=== PATIENT | female | born 2000 | race Caucasian/White ===

== ENCOUNTER 2024-08-05 21:46 | Emergency (ER) | payer BC ==
[~2024-08-05] VITALS: Ht 154.9 cm; Wt 48.5 kg
[2024-08-05 22:10] LABS: APPEARANCE,URINE CLEAR (CLEAR); BILIRUBIN,URINE NEGATIVE (NEGATIVE); COLOR,URINE LIGHT-YELLOW (YELLOW); GLUCOSE, URINE (UA) NEGATIVE (NEGATIVE); KETONES,URINE NEGATIVE (NEGATIVE); LEUKOCYTE ESTERASE ,URINE NEGATIVE Leu/uL (NEGATIVE); NITRATE,URINE NEGATIVE (NEGATIVE); OCCULT BLOOD,URINE NEGATIVE (NEGATIVE); PH,URINE 5.5 (5.0-8.0); PROTEIN,URINE NEGATIVE (NEGATIVE); UROBILINOGEN,URINE 0.2 mg/dL (0.2-1.0)
[2024-08-05 22:11] LABS: ADD UA MICROSCOPIC YES
[2024-08-05 22:12] LABS: BACTERIA,URINE RARE /HPF (None Seen); MUCUS,URINE RARE LPF (None Seen); RBC,URINE 0-1 /HPF (0-1); SQUAMOUS EPITHELIAL CELL,UR RARE /HPF (0-2); WBC,URINE 0-1 /HPF (0-1)
--- NOTE | 2024-08-05 22:30 | ERN ---
ED Note History of Present Illness Stated Complaint: C/O BACK PAIN X 4 DAYS Chief Complaint: Back Pain-No Injury Time Seen by MD: 22:01 Dictation: This is a 23-year-old female who presented to the emergency room with her partner complaining of severe back pain for the past 3-4 days. She stated that she had a spinal fusion in 2017 for scoliosis and she always has some back pain however for the past 3-4 days it has been really unbearable. No new falls or injury. No fever chills or rigors. No burning micturition no bladder or bowel incontinence no weakness in her legs or gait problems. She indicated that she might have stressed the back with some activities. Allergies: Coded Allergies: No Known Allergies (Unverified Allergy, Unknown, 08/05/24) Past Medical History Past Medical History: Anxiety, Depression, Hypertension, Other Additional Past Medical Hx: HX OF PTSD Surgical History: Other Surgical History Other: SPINAL FUSION (2016) Family History: Negative LMP: Jul 02, 2024 RN Note Reviewed/Agreed w/PFSH: Yes Review of System Dictation Constitutional: Negative for fever,chills, and weight loss Eyes: Negative for injury, pain,redness, and discharge ENT: Negative for injury,pain or swelling Cardiovascular: Negative for chest pain, palpitations, and edema Respiratory: Negative for shortness of breath, cough, and wheezing, Abdomen/GI: Negative for abdominal pain, nausea, vomiting, diarrhea, and constipation Back: Positive for back pain . Back fusion for scoliosis : Negative for injury, bleeding and discharge MS/Extremity: Negative for injury and deformity Skin: Negative for rash, and discoloration Neuro: Negative for headache, weakness, numbness, tingling, and seizure Psych: Negative for suicide ideation, homicidal ideation, and hallucinations Initial Vital Sign VS Vital Signs Date Time Temp Pulse Resp B/P (MAP) Pulse Ox O2 Delivery O2 Flow Rate FiO2 08/05/24 21:51 98.8 96 20 147/104 100 Room Air 08/05/24 22:28 0 21 Physical Exam Dictation General: awake, alert, NAD Head/Face: Normocephalic, atraumatic Eyes: PERRL, EOMI, vision at baseline ENT: oral cavity clear, TMs clear, no signs of infection Neck: Trachea midline, supple, no nuchal rigidity Cardiovascular: RRR, normal S1/S2, No MRGs, no JVD Respiratory: CTAB, no respiratory distress, No rales or wheezes Abdomen: Soft, non-tender, non-distended, normal bowel sounds, no guarding or rebound. Skin: Warm, dry, normal turgor, no rash MS/Extremity: Pulses equal, no cyanosis, neurovascular intact, FROM No tenderness in the spine. Neuro: COAx4, GCS 15, strength 5/5, CN 2-12 intact, normal cerebellar exam, normal gait, Psych: Normal behavior, mood, and affect normal Extremities-trace edema without any palpable cords, Homans sign is negative Results (Laboratory/Radiology) Laboratory/Radiology Laboratory Tests Test 08/05/24 21:56 Urine Color LIGHT-YELLOW (YELLOW) Urine Appearance CLEAR (CLEAR) Urine pH 5.5 (5.0-8.0) Urine Specific [place] 1.020 (1.001-1.031) Urine Protein NEGATIVE mg/dL (NEGATIVE) Urine Glucose (UA) NEGATIVE mg/dL (NEGATIVE) Urine Ketones NEGATIVE mg/dL (NEGATIVE) Urine Occult Blood NEGATIVE (NEGATIVE) Urine Nitrate NEGATIVE (NEGATIVE) Urine Bilirubin NEGATIVE mg/dL (NEGATIVE) Urine Urobilinogen 0.2 mg/dL (0.2-1.0) Urine Leukocyte Esterase NEGATIVE Krista/uL Urine RBC 0-1 /HPF (0-1) Urine WBC 0-1 /HPF (0-1) Urine Squamous Epithelial Cells RARE /HPF (0-2) Urine Bacteria RARE /HPF (None Seen) Urine HCG, Qualitative NEGATIVE (NEGATIVE) Urine Opiates Screen NEGATIVE (NEGATIVE) Urine Barbiturates Screen NEGATIVE (NEGATIVE) Urine Phencyclidine Screen NEGATIVE (NEGATIVE) Urine Amphetamines Screen NEGATIVE (NEGATIVE) Urine Benzodiazepines Screen NEGATIVE (NEGATIVE) Urine Cocaine Screen NEGATIVE (NEGATIVE) Urine Marijuana (THC) Screen POSITIVE (NEGATIVE) H Labs Reviewed?: Yes CT Scan Comment: REASON: h/o spinal fusion. severe back pain for 4 days ORDERING PHYSICIAN: MARILOU POTTER MD PROCEDURE: L SPIN WO - CT LUMBAR SPINE W/O CONTRAST CT LUMBAR SPINE W/O CONTRAST HISTORY: Back pain COMPARISON: None TECHNIQUE: Multiple sequential axial images of the lumbar spine were obtained including post processing sagittal and coronal reconstruction images. Patient was not given contrast through intravenous route. FINDINGS: There is levoscoliosis of lumbar spine. Orthopedic fixation plates and screws are seen traversing the T12-L3 levels. Laminectomy changes are seen at these level. Evaluation is limited due to artifacts caused by the fixation periods. This is a suboptimal study for evaluation of T12-L3. There is no loss of vertebral height. Evaluation for disc and cord pathology is limited with CT study. No evidence of fracture or dislocation is seen. IMPRESSION: 1. Limited study due to extensive artifacts from orthopedic fixation plates and screws at T12-L3. No loss of vertebral height is seen. CT was performed with one or more following dose reduction techniques: automated exposure control, adjustment of the mA and kv according to patient's size, or use of a iterative reconstruction technique. DICTATED BY: TEN PEREZ MD DATE: 08/06/2422 ELECTRONICALLY SIGNED BY: TEN PEREZ MD DATE: 08/06/2427 ED Course ED Course Orders Procedure Category Date Status Time Urinalysis Profile LAB 08/05/24 Complete 22:05 Drug Screen Urine LAB 08/05/24 Complete 22:08 ,Urine Test LAB 08/05/24 Complete 22:08 Ct Lumbar Spine W/O CT 08/05/24 Resulted Contrast 22:29 Ketorolac PHA 08/05/24 Complete Tromethamine 15mg/Ml 23:30 Ondansetron 4mg Inj PHA 08/05/24 Complete (Zofran 4mg Inj) 23:30 Cyclobenzaprine Hcl PHA 08/05/24 Complete (Cyclobenzaprine Hcl 23:30 Current Medications Medications (Trade) Dose Ordered Sig/Rama Route PRN Reason Start Time Stop Time Status Last Admin Dose Admin Cyclobenzaprine HCl (Cyclobenzaprine HCl) 5 mg ONCE ONCE PO 08/05/24 23:30 08/05/24 23:31 DC 08/06/24 00:19 Ketorolac Tromethamine (toRADol) 15 mg ONCE ONCE IV 08/05/24 23:30 08/05/24 23:31 DC 08/06/24 00:20 Ondansetron HCl (zoFRAN 4MG INJ) 4 mg ONCE ONCE IVP 08/05/24 23:30 08/05/24 23:31 DC 08/06/24 00:20 Vital Signs Date Time Temp Pulse Resp B/P (MAP) Pulse Ox O2 Delivery O2 Flow Rate FiO2 08/05/24 22:28 98.2 74 16 140/89 98 Room Air* 0 21 08/05/24 21:51 98.8 96 20 147/104 100 Room Air We will perform diagnostic labs, advanced imaging and administer medications a ccording to the patient's complaint. Once the results are available, will review and personally interpreted the labs to rule out any acute life- threatening emergency the trach require immediate intervention and treatment. I will then re-evaluate the patient after treatment and diagnostic exams have return to determine whether the patient requires any further testing, can safely be discharged home or need further admission to hospital for additional treatment and evaluation. Urinalysis is negative 11:[address] scan of the lumbar spine is still pending. 11:[address] scan is still pending. Checked with radiology 12:54 a.m. urinalysis is unremarkable UDS is negative except for THC urine test is negative. She responded very well to Toradol and cyclobenzaprine. We will plan to discharge her home and I went over the CT scan findings of the lumbar spine Medical Decision Making MDM MDM: Differential diagnosis: Rationale: Tests considered and ordered secondary to shared decision making include: Previous outside records reviewed: Old ER visits. Risk of complication and/or morbidity or mortality of patient management: None Medications-Per medication reconciliation Need for hospitalization: Patient does not meet criteria for hospitalization. Need for emergency major/minor surgery: No There are no social concerns with this patient. Prescription drug management Prescriptions will include symptomatic care Patient's prior external medical records from other ER visits were reviewed by me as indicated. Prior testing and results from previous visits were reviewed. Prior tests were taken into account with medical decision making and resource utilization, independent historian/historians were used to obtain complete medical history. I independently interpreted the test that were performed, results were reviewed by me and considered findings on radiology if ordered. Medical management and examination interpretation discussions were had by me with other qualified healthcare professionals as indicated for the patient's care. Problem List Problem List: (1) Acute on chronic back pain (2) History of spinal fusion for scoliosis DX & DISP Disposition: Discharge Departure Impression: Primary Impression: Acute on chronic back pain Additional Impression: History of spinal fusion for scoliosis Condition: Stable Scripts Cyclobenzaprine HCl (Cyclobenzaprine HCl) 5 Mg Tablet 1 TAB PO TIDP PRN for muscle spasms for 5 Days, #15 TAB 0 Refills Prov: MARILOU POTTER MD 08/06/24 Ketorolac Tromethamine (Toradol) 10 Mg Tab 10 MG PO QID for pain for 5 Days, #20 TAB 0 Refills Prov: MARILOU POTTER MD 08/06/24 Prednisone (Prednisone) 20 Mg Tablet 1 TAB PO AD for 6 Days, #14 TAB 0 Refills TAKE 1 TAB BY MOUTH THREE TIMES PER DAY X3 DAYS, THEN TAKE 1 TAB BY MOUTH TWICE A DAY X2 DAYS, THEN TAKE 1 TAB BY MOUTH ONCE A DAY X1 DAY. Prov: MARILOU POTTER MD 08/06/24 Additional Instructions: Patient and the caregiver have been informed of all the diagnostic tests and the imaging conducted during the today's visit to the emergency room and has verbalized understanding of the results I have personally reviewed and interpreted all diagnostic exams performed here in the ER today as well as the vital signs documented by the nursing staff. The patient is now being discharged to home and should follow up with the primary care physician or the specialist as directed by the ER staff. Follow-up with primary care provider in 1 to 2 days. Take medications as directed here in the emergency room. Okay to continue home medications unless otherwise discussed during your visit in the emergency room today. Return to your nearest emergency room if symptoms worsen or if there is no improvement. Call 911 if you need immediate assistance. Take Tylenol or Motrin [id number] as needed and if no contraindications are present. Increase oral hydration. A wound culture or urine culture was ordered here in the emergency room department please follow-up with primary care provider and advise them to get repeat ports from our facility. If you had any Eric wrap/splints that were applied here, please do not remove them until you see your primary care or specialty. Referral to Orthopedics spine surgeon or neurosurgery and her primary care physician Referrals: SELF,REFERRAL (PCP) MARILOU POTTER MD Aug 05, 2024 22:30
--- NOTE | 2024-08-05 23:09 | NUR ---
transfered care to [facility] charge nurse at this time
[2024-08-05 23:31] LABS: HCG,QUALITATIVE URINE NEGATIVE (NEGATIVE)
[2024-08-05 23:38] LABS: AMPHET/METH SCREEN,URINE NEGATIVE (NEGATIVE); BARBITURATE SCREEN, URINE NEGATIVE (NEGATIVE); BENZODIAZEPINES SCREEN,URINE NEGATIVE (NEGATIVE); CANNABINOID SCREEN,URINE POSITIVE (NEGATIVE); COCAINE SCREEN,URINE NEGATIVE (NEGATIVE); OPIATE SCREEN,URINE NEGATIVE (NEGATIVE); PHENCYCLIDINE SCREEN,URINE NEGATIVE (NEGATIVE)
[2024-08-06] MEDS: CYCLOBENZAPRINE HCL 10 MG TABLET PO ONE (00:19)
[2024-08-06] MEDS: ketOROlac 15MG/ML VIAL (15MG/ML) IV ONE (00:20)
[2024-08-06] MEDS: ondanSETRON 4MG INJ IVP ONE (00:20)
--- NOTE | 2024-08-06 00:20 | NUR ---
patient found eating [employer]. No nausea, eating without any issues.
--- NOTE | 2024-08-06 00:28 | HMCIMG ---
CT LUMBAR SPINE W/O CONTRAST HISTORY: Back pain COMPARISON: None TECHNIQUE: Multiple sequential axial images of the lumbar spine were obtained including post processing sagittal and coronal reconstruction images. Patient was not given contrast through intravenous route. FINDINGS: There is levoscoliosis of lumbar spine. Orthopedic fixation plates and screws are seen traversing the T12-L3 levels. Laminectomy changes are seen at these level. Evaluation is limited due to artifacts caused by the fixation periods. This is a suboptimal study for evaluation of T12-L3. There is no loss of vertebral height. Evaluation for disc and cord pathology is limited with CT study. No evidence of fracture or dislocation is seen. IMPRESSION: 1. Limited study due to extensive artifacts from orthopedic fixation plates and screws at T12-L3. No loss of vertebral height is seen. CT was performed with one or more following dose reduction techniques: automated exposure control, adjustment of the mA and kv according to patient's size, or use of a iterative reconstruction technique.
[2024-08-06] MEDS ORDERED: KETO10 PO (00:54)
[2024-08-06] MEDS ORDERED: PRED20TA3 PO (00:54)
[2024-08-06] MEDS ORDERED: CYCL5TAB3 PO (00:54)
[2024-08-06 01:00] VITALS: BP 136/88; PULSE 88; RESP 16; TEMP 98.2; O2SAT 100
== END 2024-08-06 01:10 | disposition home or self-care (01) ==
LOC: EDH 21:46
DX: G89.29 Other chronic pain (principal); M54.50 Low back pain, unspecified; I10 Essential (primary) hypertension; Z98.1 Arthrodesis status
CPT/HCPCS: 99284; 72131; 80305; 81025; 81001; 96374; 96375; J1885; J2405